=== PATIENT | male | born 1985 | race Caucasian/White ===

== ENCOUNTER → 2017-03-22 | Outpatient (CLI) | payer OTHER ==
--- NOTE | 2017-03-23 06:57 | US ---
HISTORY: Testicular hypofunction. Study: Scrotal ultrasound Comparison: No priors Technique: Multiple quiroga scale and Doppler images of the right and left testicles were obtained Findings: The testicles demonstrate normal echotexture. No intra parenchymal mass or infiltrative process can be identified. Normal color flow Doppler is observed. The right testicle measures 23.8 x 27.7 x 44 .1 millimeters. The left testicle measures 24.6 x 31.6 x 38.3millimeters. The right epididymis is no rmal. 2 small simple cysts are present involving the left epididymal head. These measure about 3 mil limeters each. IMPRESSION: 2 small epididymal head cysts present on the left. No evidence of testicular tumor or torsion. No evidence of testicular enlargement. Testicles appear normal in size. Reported By:
== END ==
LOC: RAD 15:34
PROVIDERS: ATTEND Nurse Practitioner Family
DX: R79.89 Other specified abnormal findings of blood chemistry (principal); E29.1 Testicular hypofunction
CPT/HCPCS: 76870